=== PATIENT | male | born 1960 | race Caucasian/White ===

== ENCOUNTER 2019-03-14 15:52 | Outpatient (CLI) | payer OTHER ==
--- NOTE | 2019-03-15 00:27 | XRAY Report ---
Reason: L KNEE PAIN,HX PRIOR FEMUR AND ACL TEAR W POST OP Procedure Date: 03/14/2019 Accession Number: [id number] / [id number] Procedure: XR - Knee 3 View LT CPT Code: FULL RESULT: EXAM: LEFT KNEE RADIOGRAPHY EXAM DATE: 03/14/2019 04:05 PM. CLINICAL HISTORY: L KNEE PAIN,HX PRIOR FEMUR AND ACL TEAR W POST OP. COMPARISON: None. TECHNIQUE: 3 views. FINDINGS: Bones: Evidence of previous distal femoral fracture and ACL replacement. Single screw in the distal femur. Evidence of previous hardware removal. Joints: Moderate osteoarthritis. No effusion. Soft Tissues: Normal. No soft tissue swelling. IMPRESSION: Moderate osteoarthritis. Postoperative changes of previous fracture fixation and ACL replacement. RADIA
== END 2019-03-14 15:53 | disposition home or self-care (01) ==
LOC: DI 15:52
PROVIDERS: ATTEND Internal Medicine
DX: M17.12 Unilateral primary osteoarthritis, left knee (principal)

== ENCOUNTER 2024-01-04 08:00 | Outpatient (CLI) | payer OTHER ==
[2024-01-04 12:01] LABS: BASOPHILS % (AUTO) 0.6 %; EOSINOPHILS # (AUTO) 0.1 10^3/uL (0.0-0.7); EOSINOPHILS % (AUTO) 1.2 %; HCT - HEMATOCRIT 47.1 % (42.0-52.0); HGB - HEMOGLOBIN 15.3 g/dL (14.0-18.0); LYMPHOCYTES # (AUTO) 1.3 10^3/uL (1.5-3.5); LYMPHOCYTES % (AUTO) 18.7 %; MEAN CORPUSCULAR HEMOGLOBIN 30.5 pg (27.0-31.0); MEAN CORPUSCULAR HGB CONC 32.5 g/dL (32.0-36.0); MONOCYTES # (AUTO) 0.4 10^3/uL (0.0-1.0); MONOCYTES % (AUTO) 5.7 %; NEUTROPHILS # (AUTO) 4.9 10^3/uL (1.5-6.6); NEUTROPHILS % (AUTO) 73.5 %; PLT - PLATELET COUNT 210 10^3/uL (130-450); RED BLOOD COUNT 5.01 10^6/uL (4.70-6.10); RED CELL DISTRIBUTION WIDTH 11.9 % (12.0-15.0); WHITE BLOOD COUNT 6.7 x10^3/uL (4.8-10.8)
[2024-01-04 12:25] LABS: ALBUMIN 4.4 g/dL (3.2-5.5); BILIRUBIN,TOTAL 0.5 mg/dL (0.2-1.0); CALCIUM 9.9 mg/dL (8.5-10.3); POTASSIUM 4.7 mmol/L (3.5-4.5); TOTAL PROTEIN 6.6 g/dL (6.4-8.9); URIC ACID 4.1 mg/dL (4.4-7.6)
[2024-01-04 13:08] LABS: ESTIMATED AVERAGE GLUCOSE 283 mg/dL (70-100); HEMOGLOBIN A1c% 11.5 % (4.27-6.07)
== END 2024-01-04 08:15 | disposition home or self-care (01) ==
LOC: LAB.N 08:00
PROVIDERS: ATTEND Family Medicine
DX: N20.0 Calculus of kidney (principal)
CPT/HCPCS: 36415; 80053; 83036; 84550; 85025

== ENCOUNTER 2024-01-04 18:35 | Outpatient (CLI) | payer OTHER ==
--- NOTE | 2024-01-04 19:17 | CT Report ---
PROCEDURE: Abdomen/Pelvis WO INDICATIONS: NEPHROLITHIASIS TECHNIQUE: A CT scan of the abdomen and pelvis was performed without the use of intravenous contrast. Images we re recorded and evaluated at appropriate window settings. Reformats: coronal and sagittal. For radiat ion dose reduction, the following was used: automated exposure control, adjustment of mA and/or kV ac cording to patient size. COMPARISON: None. FINDINGS: Image quality: Diagnostic. Lower chest: Unremarkable. Liver: No contour-deforming mass. Gallbladder and biliary tree: No radiopaque stones or wall thickening. No biliary dilation. Spleen: No splenomegaly. Pancreas: No pancreatic ductal dilation. Adrenals: No adrenal nodule. Kidneys and ureters: There is mild right-sided hydronephrosis and mild right perinephric fat strandin g. Mild right-sided hydroureter is also seen. 4 mm calcification is seen in distal right ureter just proximal to right UVJ series 4 image 85 and series 2 image 125. Faint 1 to 2 mm nonobstructing left r enal calculi are seen. No left-sided hydronephrosis or hydroureter. Stomach, bowel and peritoneum: No bowel distension. No pathologic free fluid. Sigmoid diverticulosis is seen without sigmoid colon wall thickening or mesenteric fat stranding. Appendix is not definitive ly seen. No abnormal bowel wall thickening or mesenteric fat stranding in right lower quadrant is see n. Lymph nodes: No central or retroperitoneal adenopathy. Vessels: No infrarenal aortic aneurysm. PELVIS Reproductive organs: Unremarkable. Bladder: No wall thickness, accounting for underdistention. Pelvic lymph nodes: No pelvic adenopathy by size criteria. Bones: No aggressive osseous abnormality. Other: No significant ventral or inguinal hernia. IMPRESSION: 1. Mild right-sided hydronephrosis and hydroureter with 4 mm distal right ureteral stone as above. Ti ny nonobstructing left renal calculi. No left-sided hydronephrosis or hydroureter. Normal-appearing u rinary bladder. 2. No bowel obstruction or abnormal bowel wall thickening. No free fluid of free air. Sigmoid diverti culosis without evidence of acute diverticulitis. No evidence of acute appendicitis. No abscess colle ction. Reviewed by: Awais Navas MD on 01/04/2024 7:16 PM PST Approved by: Awais Navas MD on 01/04/2024 7:16 PM PST Station ID: [id number]
== END 2024-01-04 18:36 | disposition home or self-care (01) ==
LOC: DI 18:35
PROVIDERS: ATTEND Family Medicine
DX: N13.2 Hydronephrosis with renal and ureteral calculous obstruction (principal); K57.30 Diverticulosis of large intestine without perforation or abscess without bleeding
CPT/HCPCS: 36415; 80053; 83036; 84550; 85025

== ENCOUNTER 2024-02-17 15:57 | Outpatient (CLI) | payer OTHER ==
--- NOTE | 2024-02-18 18:37 | Ultrasound Report ---
PROCEDURE: Renal (Retroperitoneal) INDICATIONS: NEPHROLITHIASIS TECHNIQUE: Real-time scanning was performed of the retroperitoneal organs, with image documentation. COMPARISON: CT abdomen and pelvis, 01/04/2024. FINDINGS: Kidneys: Kidneys are normal in size. Right kidney measures 11.9 cm long; left kidney measures 10.6 cm long. Right renal cortical thickness is 0.7 cm; left renal cortical thickness is 1.1 cm. There i s a 4.4 mm echogenic focus in the mid right kidney, probably a nonobstructive stone. A echogenic focu s in the abdomen below the left kidney, most likely an artifact. No solid masses, hydronephrosis, or nephrolithiasis. Bladder: Pre-void bladder volume is 83 mL. Post-void residual is 25 mL. Pre-void images demonstrat e no intraluminal masses or stones. On pre-void images, both ureteral jets are noted with color Dopp ler interrogation. (Of note, ureteral jets may not be detectable in up to 25% of cases due to insuff icient differences in specific gravity between ureteral and bladder urine). Miscellaneous: No free abdominal fluid. Prostate is enlarged. IMPRESSION: 1. No hydronephrosis. 2. A small nonobstructive stone versus artifact in the inferior pole of the right kidney. 3. Normal urinary bladder. 4. Enlargement of prostate Reviewed by: Wisam Montes MD on 02/18/2024 6:35 PM PDT Approved by: Wisam Montes MD on 02/18/2024 6:35 PM PDT Station ID: [id number]
== END 2024-02-17 15:58 | disposition home or self-care (01) ==
LOC: DI 15:57
PROVIDERS: ATTEND Urology
DX: N20.0 Calculus of kidney (principal); N40.0 Benign prostatic hyperplasia without lower urinary tract symptoms

== ENCOUNTER 2024-04-09 07:52 | Day surgery (SDC) | payer OTHER ==
[2024-04-09] MEDS: LACTATED RINGERS 1,000 ML IV ONE ×2 (07:59→10:22)
--- NOTE | 2024-04-09 09:39 | ANESTHESIA ---
Pre-Anesthesia VS, & Labs - Diagnosis family hx, hx of polyps - Procedure COLONOSCOPY Vital Signs: Temp Pulse Resp BP Pulse Ox O2 Flow Rate 36.3 C L 68 12 149/82 H 98 04/09/24 08:11 04/09/24 08:11 04/09/24 08:11 04/09/24 08:11 04/09/24 08:11 Height: 5 ft 10 in Weight (kg): 83.3 kg Body Mass Index: 26.3 BMI Classification: Overweight - Lab Results Current Lab Results: Laboratory Tests 04/09/24 08:31: POC Whole Bld Glucose 123 H Home Medications and Allergies Ibuprofen [Motrin] 600 mg PO Q6H PRN 01/27/24 Tamsulosin [Flomax] 0.4 mg PO DAILY 01/27/24 metFORMIN [Glucophage] 1,000 mg PO BIDWM 01/27/24 Allergies/Adverse Reactions: Allergies Allergy/AdvReac Type Severity Reaction Status Date / Time Penicillins Allergy Unknown Verified 04/06/24 14:06 shellfish derived AdvReac Emesis Verified 04/06/24 14:08 Anes History & Medical History - Anesthetic History Anesthesia Complications: reports: No previous complications, Difficult airway - Medical History Cardiovascular: reports: None Pulmonary: reports: Pneumonia (2017; NO RESIDUAL) Gastrointestinal: reports: None Urinary: reports: None Musculoskeletal: reports: None Endocrine/Autoimmune: reports: Type 2 diabetes Skin: reports: None Smoking Status: Never smoker Psychosocial: reports: No issues indicated - Surgical History General: reports: Colonoscopy Orthopedic: reports: ACL reconstruction, Other Results - EKG Results EKG Comparison: Reviewed EKG Exam General: Alert Dental: WNL, Other (R UPPER INCISOR) Mouth Openin Fingerbreadth Neck Mobility: Normal Mallampati classification: II Thyromental Distance: 4-6 cm Respiratory: Lungs clear Cardiovascular: Regular rate Plan Anesthesia Type: Total IV Consent for Procedure(s) Verified and Reviewed: Yes Code Status: Attempt Resuscitation ASA classification: 2-Mild systemic disease Is this case an emergency?: No
[2024-04-09 10:55] VITALS: BP 132/81; O2SAT 98
--- NOTE | 2024-04-09 15:41 | ANESTHESIA POST OP EVALUATION ---
Anesthesia Post Eval - Post Anesthesia Eval Vitals: Last Vital Signs Temp 36.5 C 04/09/24 10:50 Pulse 70 04/09/24 10:50 Resp 14 04/09/24 10:50 BP 132/81 H 04/09/24 10:50 Pulse Ox 98 04/09/24 10:50 O2 Flow Rate CV Function Including HR & BP: Stable Pain Control: Satisfactory Nausea & Vomiting: Negative Mental Status: Baseline Respiratory Status: Airway Patent Hydration Status: Satisfactory Anesthesia Complications: None
== END 2024-04-09 07:53 | disposition home or self-care (01) ==
LOC: SDS 07:52
PROVIDERS: ATTEND Surgery
DX: Z12.11 Encounter for screening for malignant neoplasm of colon (principal); K57.30 Diverticulosis of large intestine without perforation or abscess without bleeding; K64.1 Second degree hemorrhoids; E11.9 Type 2 diabetes mellitus without complications; Z86.010 Personal history of colon polyps; Z80.0 Family history of malignant neoplasm of digestive organs; Z79.84 Long term (current) use of oral hypoglycemic drugs
CPT/HCPCS: 45378; J7120

== ENCOUNTER 2024-04-10 09:12 | Outpatient (CLI) | payer OTHER ==
[2024-04-10 09:58] LABS: MICROALBUMIN,URINE < 0.7 mg/dL
[2024-04-10 09:59] LABS: THYROID STIMULATING HORMONE 2.03 uIU/mL (0.34-5.60)
[2024-04-10 11:16] LABS: CHOLESTEROL 170 mg/dL; HDL CHOLESTEROL 43 mg/dL; LDL CHOLESTEROL,CALCULATED 109 mg/dL; LDL/HDL RATIO 2.5 (<3.6); TRIGLYCERIDES 92 mg/dL (48-352); VLDL CHOLESTEROL 18 mg/dL
[2024-04-10 11:38] LABS: POTASSIUM 4.6 mmol/L (3.5-4.5)
[2024-04-10 12:11] LABS: BUN - BLOOD UREA NITROGEN 31 mg/dL (6-20); CALCIUM 9.5 mg/dL (8.5-10.3); CARBON DIOXIDE - CO2 22 mmol/L (21-32); CHLORIDE 105 mmol/L (101-111); CREATININE 1.1 mg/dL (0.6-1.3); GFR - MDRD 67 (>89); GLUCOSE 133 mg/dL (74-104); SODIUM 137 mmol/L (135-145)
== END 2024-04-10 09:13 | disposition home or self-care (01) ==
LOC: LAB 09:12
PROVIDERS: ATTEND Family Medicine
DX: I10 Essential (primary) hypertension (principal); E11.65 Type 2 diabetes mellitus with hyperglycemia; Z12.5 Encounter for screening for malignant neoplasm of prostate
CPT/HCPCS: 36415; 80048; 80061; 82043; 82570; 83721; 84153; 84443

== ENCOUNTER 2024-07-31 07:00 | Outpatient (CLI) | payer OTHER ==
[2024-07-31 07:53] LABS: ALBUMIN 4.1 g/dL (3.2-5.5); ALBUMIN/GLOBULIN RATIO 2.1 (1.0-2.2); BILIRUBIN,TOTAL 0.6 mg/dL (0.2-1.0); CREATININE 0.9 mg/dL (0.6-1.3); TOTAL PROTEIN 6.1 g/dL (6.4-8.9)
[2024-07-31 10:10] LABS: ESTIMATED AVERAGE GLUCOSE 126 mg/dL (70-100)
== END 2024-07-31 07:01 | disposition home or self-care (01) ==
LOC: LAB 07:00
PROVIDERS: ATTEND Family Medicine
DX: I10 Essential (primary) hypertension (principal); E11.65 Type 2 diabetes mellitus with hyperglycemia
CPT/HCPCS: 36415; 80053; 83036